=== PATIENT | male | born 1955 | race Caucasian/White ===

== ENCOUNTER → 2017-08-25 | Outpatient (CLI) | payer BC ==
[~2017-08-25] MED LIST: RABE20TA
--- NOTE | 2017-08-25 16:43 | Diagnostic Imaging Report ---
Indication: Productive cough. PA and lateral views of chest were obtained. Findings: Heart size is normal. The mediastinum was unremarkable. There is air trapping compatible with COPD. There is no pleural effusion or pneumothorax. Impression: COPD. No other acute cardiopulmonary abnormality. Dictated by: Dictated on workstation # [id number]
== END ==
LOC: RAD 15:56
PROVIDERS: ATTEND Family Medicine
DX: J44.9 Chronic obstructive pulmonary disease, unspecified (principal)
CPT/HCPCS: 71046

== ENCOUNTER → 2017-09-01 | Outpatient (CLI) | payer BC ==
[~2017-09-01] MED LIST changes: +RT-ALBUTEROL SULF 2.5 MG/3 ML PRE-MIX VIAL INH ONE
== END ==
LOC: RT 16:17
PROVIDERS: ATTEND Family Medicine
DX: R05 Cough (principal)
CPT/HCPCS: 94060; 94726; 94729

== ENCOUNTER 2020-04-05 22:00 | Emergency (ER) | payer MEDICARE, OTHER ==
[~2020-04-05] VITALS: Ht 182.8 cm; Wt 76.2 kg
[~2020-04-05 22:00] MED LIST changes: -RT-ALBUTEROL SULF 2.5 MG/3 ML PRE-MIX VIAL INH ONE
[2020-04-05 22:05] VITALS: BP 153/77
--- NOTE | 2020-04-05 22:22 | ED Integumentary General ---
General Chief Complaint: Skin/Wound Problems Stated Complaint: SUTURE PROBLEM Nursing Triage Note: PATIENT AND WERE CHANGING BANDAID AND THOUGHT THEY MAY HAVE BROKEN THE STICHES FROM INCISION. CAITLIN BLOOD NOTED, MODERATE AMT OF BLEEDING NOTED. PRESSURE DRESSING APPLIED. CALL LIGHT IN REACH. MONITORING MAINTAINED. Source: patient History of Present Illness Date Seen by Provider: Apr 05, 2020 Time Seen by Provider: 22:15 Initial Comments PT ARRIVES VIA POV FROM HOME STATES HE HAD SKIN CANCERS REMOVED TODAY IN DR. HUTTON'S OFFICE WAS CHANGING THE DRESSING TONIGHT, AND WOUND BELOW LEFT SHOULDER BLADE BEGAN TO BLEED, AND WAS CONCERNED THAT STITCHES CAME OUT OR WOUND HAD SPLIT OPEN NO SIGNIFICANT PAIN WOUND TO LEFT LATERAL NECK IS OK PT IS NOT ON ASPIRIN OR ANY BLOOD THINNERS Allergies and Home Medications Allergies Coded Allergies: No Known Drug Allergies (Unverified , 04/05/20) Patient Home Medication List Home Medication List Reviewed: Yes Review of Systems Review of Systems Constitutional: no symptoms reported Skin: see HPI Past Bbcivct-Mpsumj-Zubyqe Hx Patient Social History Recent Foreign Travel: No Contact w/Someone Who Travel: No Recent Infectious Disease Expo: No Past Medical History Reproductive Disorders: No Physical Exam Vital Signs Vital Signs - First Documented 04/05/20 22:05 Temp 35.7 Pulse 55 Resp 18 B/P (MAP) 153/77 (102) Pulse Ox 98 Capillary Refill : Less Than 3 Seconds General Appearance: WD/WN, no apparent distress Neck: other (WOUND TO LEFT LATERAL NECK WITH INTACT SUTURES AND NO BLEEDING) Skin: normal color, warm/dry, other (WOUND BELOW LEFT SCAPULA WITH MODERATE AMOUNT OF CAITLIN BLOOD ON DRESSING, WAS OOZING BLOOD ON ARRIVAL, BUT HAS NOW STOPPED. SUTURES ARE ALL INTACT, AND WOUND IS NOT GAPING. ) Progress/Results/Core Measures Results/Orders My Orders Orders - REYNA PERALES DO Wound Dressing-Ed (04/05/20 22:20) Vital Signs/I&O 04/05/20 22:05 Temp 35.7 Pulse 55 Resp 18 B/P (MAP) 153/77 (102) Pulse Ox 98 Blood Pressure Mean: 102 Progress Progress Note : Progress Note WOUND CLEANSED AND DRESSED, MILD PRESSURE BANDAGE PLACED NO BLEEDING AT DISMISSAL Departure Impression Primary Impression: SURGICAL WOUND BLEEDING Disposition: 01 HOME, SELF-CARE Condition: Stable Departure-Patient Inst. Referrals: CARLOS A MORRISON MD (PCP/Family) Primary Care Physician Patient Instructions: Wound Care (DC) Add. Discharge Instructions: APPLY PRESSURE NEEDED IF WOUND IS BLEEDING APPLY ICE PACK AT 20 MINUTE INTERVALS NEEDED IF WOUND IS BLEEDING LIMITED USE OF LEFT ARM FOR THE NEXT FEW DAYS FOLLOW UP WITH DR. HUTTON IN 2-3 DAYS IF BLEEDING PERSISTS All discharge instructions reviewed with patient and/or family. Voiced understanding. REYNA PERALES DO Apr 05, 2020 22:22
== END 2020-04-05 22:38 | disposition home or self-care (01) ==
LOC: ER 22:00 → EDUNIT# 22:00 → ER 22:38
DX: L76.22 Postprocedural hemorrhage of skin and subcutaneous tissue following other procedure (principal); Z85.828 Personal history of other malignant neoplasm of skin
CPT/HCPCS: 99282